=== PATIENT | female | born 1995 | race Caucasian/White ===

== ENCOUNTER 2021-01-07 13:50 | Emergency (ER) | payer OTHER ==
[~2021-01-07 13:50] MED LIST: EFFEXOR XR150 MG PO; IBUPROFEN800 M1 PO; KETOROLAC TROME10 MG PO; ZOFRAN8 MG PO
[2021-01-07 17:31] LABS: ALBUMIN 3.7 g/dL (3.4-5.0); BILIRUBIN - TOTAL 0.3 mg/dL (0.2-1.0); BUN/CREAT RATIO (CALC) 10.5 RATIO; CREATININE 0.76 mg/dL (0.51-0.95); POTASSIUM 4.1 mmol/L (3.5-5.1); TOTAL PROTEIN 7.7 g/dL (6.4-8.2)
[2021-01-07 17:44] LABS: BASOPHIL 0.4 % (0-2); EOSINOPHIL 0 % (0-5); HCT 36.7 % (37.0-47.0); HGB 11.2 g/dl (12.5-16.0); LYMPHOCYTE 27.7 % (15-48); MCH 23.8 pg (25.0-31.0); MCHC 30.5 g/dL (32.0-36.0); MCV 78.1 fL (78.0-100.0); MONOCYTE 7.6 % (0-12); MPV 10.2 fL (6.0-9.5); NEUTROPHIL 63.9 % (41-80); NRBC 0; PLT 360 K/uL (150-400); RDW 15.7 % (11.5-14.0); WBC 10.2 K/uL (4.0-10.5)
[2021-01-07 18:40] LABS: BILIRUBIN NEGATIVE (NEGATIVE); BLOOD NEGATIVE Ery/uL (NEGATIVE); CLARITY CLEAR (CLEAR); COLOR YELLOW (YELLOW); GLUCOSE (U) NORMAL (NORMAL); LEUKOCYTES NEGATIVE Leu/uL (NEGATIVE); NITRITE NEGATIVE (NEGATIVE); PROTEIN NEGATIVE (NEGATIVE); SPECIFIC GRAVITY >=1.030 (1.001-1.030); UROBILINOGEN 0.2 mg/dL (0.2-1.0)
[2021-02-14] MEDS ORDERED: IBUPROFEN800 M1 PO (10:42)
== END 2021-01-07 18:55 | disposition home or self-care (01) ==
LOC: FER 13:50
PROVIDERS: Emergency Medicine
DX: O21.0 Mild hyperemesis gravidarum (principal); Z88.2 Allergy status to sulfonamides; Z3A.08 8 weeks gestation of pregnancy
CPT/HCPCS: 36415; 80053; 81003; 85025; J1200; J2405; J7030

== ENCOUNTER → 2021-02-14 | Day surgery (SDC) | payer OTHER ==
[~2021-02-14] VITALS: Ht 154.9 cm; Wt 59.0 kg
[2021-02-14 10:19] LABS: HCT 33.5 % (37.0-47.0); MCH 22.5 pg (25.0-31.0); MCHC 29.9 g/dL (32.0-36.0); MCV 75.5 fL (78.0-100.0); MPV 10.1 fL (6.0-9.5); RBC 4.44 M/uL (4.20-5.40); RDW 14.9 % (11.5-14.0); WBC 5.3 K/uL (4.0-10.5)
== END | disposition home or self-care (01) ==
LOC: FAS 09:35
PROVIDERS: Obstetrics & Gynecology
DX: O03.4 Incomplete spontaneous abortion without complication (principal); D64.9 Anemia, unspecified; F41.8 Other specified anxiety disorders; Z87.891 Personal history of nicotine dependence; Z88.1 Allergy status to other antibiotic agents; Z88.8 Allergy status to other drugs, medicaments and biological substances
CPT/HCPCS: 36415; 86850; 86900; 86901; J1100; J1170; J1885; J1956; J2250; J2405; J2704; J3010; J7120

== ENCOUNTER 2021-03-29 22:53 | Emergency (ER) | payer OTHER ==
[2021-03-30 00:01] LABS: BASOPHIL 0.7 % (0-2); EOSINOPHIL 0.1 % (0-5); HCT 31.2 % (37.0-47.0); HGB 9.1 g/dl (12.5-16.0); LYMPHOCYTE 40.3 % (15-48); MCH 21.3 pg (25.0-31.0); MCHC 29.2 g/dL (32.0-36.0); MCV 73.1 fL (78.0-100.0); MPV 10.4 fL (6.0-9.5); NEUTROPHIL 49.8 % (41-80); NRBC 0; PLT 382 K/uL (150-400); RBC 4.27 M/uL (4.20-5.40); RDW 15.5 % (11.5-14.0); WBC 7.7 K/uL (4.0-10.5)
[2021-03-30 00:13] LABS: ALBUMIN 3.6 g/dL (3.4-5.0); BILIRUBIN - TOTAL 0.2 mg/dL (0.2-1.0); BUN/CREAT RATIO (CALC) 9.4 RATIO; CREATININE 0.85 mg/dL (0.51-0.95); GLOBULIN (CALCULATION) 3.5 g/dL; POTASSIUM 3.5 mmol/L (3.5-5.1); TOTAL PROTEIN 7.1 g/dL (6.4-8.2)
[2021-03-30] MEDS ORDERED: PERCOCET 5-3251 EACH PO (02:28)
[2021-03-30] MEDS ORDERED: ONDANSETRON ODT4 MG SL (02:28)
[2021-03-30] MEDS ORDERED: IBUPROFEN800 MG PO (02:28)
[2021-04-01] MEDS ORDERED: IBUPROFEN800 M1 PO (18:23)
[2021-04-01 22:08] LABS: CHLAMYDIA TRACHOMATIS, NAA Negative (Negative); NEISSERIA GONORRHOEAE, NAA Negative (Negative)
== END 2021-03-30 02:45 | disposition home or self-care (01) ==
LOC: FER 22:53
PROVIDERS: Emergency Medicine Emergency Medical Services
DX: O03.4 Incomplete spontaneous abortion without complication (principal); Z88.2 Allergy status to sulfonamides; Z88.1 Allergy status to other antibiotic agents
CPT/HCPCS: 36415; 76830; 80053; 84702; 85025; 87210; 87491; 87591; J1170; J1885; J2270; J2405; J7030

== ENCOUNTER → 2021-04-01 | Day surgery (SDC) | payer OTHER ==
[~2021-04-01] VITALS: Ht 154.9 cm; Wt 58.1 kg
[~2021-04-01] MED LIST changes: +IBUPROFEN800 MG PO; +ONDANSETRON ODT4 MG SL; +PERCOCET 5-3251 EACH PO
[2021-04-01 19:08] LABS: BASOPHIL 0.4 % (0-2); EOSINOPHIL 0 % (0-5); HCT 34.1 % (37.0-47.0); HGB 9.9 g/dl (12.5-16.0); LYMPHOCYTE 33.9 % (15-48); MCH 21.2 pg (25.0-31.0); MONOCYTE 8.2 % (0-12); MPV 10.7 fL (6.0-9.5); NEUTROPHIL 57.2 % (41-80); NRBC 0; PLT 392 K/uL (150-400); RBC 4.67 M/uL (4.20-5.40); RDW 15.4 % (11.5-14.0); WBC 7.6 K/uL (4.0-10.5)
[2021-04-01 20:06] LABS: TOTAL CELL COUNT 100
[2021-04-01 20:07] LABS: BASOPHIL(M) 0 % (0-2); EOSINOPHIL(M) 0 % (0-5); LYMPHOCYTE(M) 23 % (15-48); MONOCYTE(M) 7 % (0-12); NEUTROPHILS(M) 70 % (41-80); PLATELET ESTIMATE NORMAL; PLATELET MORPHOLOGY NORMAL
== END | disposition home or self-care (01) ==
LOC: FAS 17:00
PROVIDERS: Nurse Anesthetist, Certified Registered
DX: O03.4 Incomplete spontaneous abortion without complication (principal); D64.9 Anemia, unspecified; F41.9 Anxiety disorder, unspecified; Z87.891 Personal history of nicotine dependence; Z72.89 Other problems related to lifestyle; Z88.1 Allergy status to other antibiotic agents; Z88.2 Allergy status to sulfonamides; Z88.8 Allergy status to other drugs, medicaments and biological substances; Z79.1 Long term (current) use of non-steroidal anti-inflammatories (NSAID); Z79.899 Other long term (current) drug therapy
CPT/HCPCS: 36415; 84702; J1100; J1170; J1885; J1956; J2250; J2405; J2704; J3010; J7120; U0002